=== PATIENT | female | born 1985 | race Hispanic/Latino ===

== ENCOUNTER → 2025-07-30 | Day surgery (SDC) | payer OTHER ==
[~2025-07-30] MED LIST: FENOFIBRATE145 MG PO; LIDOCAINE HCL 2% LOCAL INJ 5 ML SDV VIAL INJ ONE; LINZESS290 MCG PO; MYRBETRIQ50 MG PO; OMEPRAZOLE40 MG PO; PROPOFOL IV EMULSION 10 MG/ML 20 ML VIAL ONE; QUETIAPINE FUM100 MG PO; SERTRALINE HCL50 MG PO; SPIRONOLACTONE25 MG PO
[2025-07-30] MEDS: LACTATED RINGER'S 1,000 ML ONE (07:14)
[2025-07-30 08:50] VITALS: BP 136/82; PULSE 79; RESP 16; O2SAT 98
== END | disposition home or self-care (01) ==
LOC: OR 06:44
PROVIDERS: ATTEND Internal Medicine Gastroenterology
DX: K29.50 Unspecified chronic gastritis without bleeding (principal); K21.9 Gastro-esophageal reflux disease without esophagitis; K76.0 Fatty (change of) liver, not elsewhere classified; K59.00 Constipation, unspecified; E66.01 Morbid (severe) obesity due to excess calories; Z78.9 Other specified health status; F41.9 Anxiety disorder, unspecified; F32.A Depression, unspecified; Z79.899 Other long term (current) drug therapy; Z68.32 Body mass index [BMI] 32.0-32.9, adult; Z71.3 Dietary counseling and surveillance
CPT/HCPCS: 43239; 81025; 88305; 88342; J2003; J2704; J7121